=== PATIENT | female | born 1945 | race Caucasian/White ===

== ENCOUNTER 2016-12-15 21:10 | Emergency (ER) | payer MEDICARE ==
[~2016-12-15] VITALS: Ht 160 cm; Wt 70.5 kg
[~2016-12-15 21:10] MED LIST: APIX5TAB PO; BIOT10002 PO; CALC600T12 PO; CARV25TA2 PO; CHOL200047 PO; LOSA25TA2 PO; MAGN400T4 PO; MULT-1018 PO; OMEG1CAP99 PO; SIMV20TA4 PO; TOLT4CAP13 PO; VIT1CAPS8 PO
[2016-12-15 21:15] VITALS: BP 158/70; PULSE 65; RESP 16; O2SAT 98
--- NOTE | 2016-12-15 22:22 | ED.REPORT ---
HPI- Female Date of Service Dec 15, 2016 ED Provider: Tong Camacho MD This is a 71 year old female with history of idiopathic cardiomyopathy, a-fib anticoagulated on warfarin, and HTN presenting to the emergency department due to burning urination that began yesterday evening. Pt reports seeing sediment while urinating today. Denies abdominal pain, fever, chills, back pain, dysuria , urinary frequency, urgency, decreased PO intake, or pelvic pain. She recently treated for UTI, completed antibiotics 5 days ago, though she was asymptotic at this time. Nursing Notes Stated Complaint: BURNING WHILE URINATING Chief Complaint: Female Abdominal Pain Nursing Notes Reviewed: Yes ([employer], meds not reconciled - anticoagulated on warfarin (Eliquis DC'd)) Allergies: Coded Allergies: Sulfa (Sulfonamide Antibiotics) (Verified Allergy, Unknown, 12/15/16) Scheduled Apixaban (Eliquis) 5 Mg Tablet 5 MG PO B ID Biotin (Biotin) 10,000 Mcg Tab.rapdis 5,000 MCG PO DAILY Calcium Carbonate (Calcium) 600 Mg Tablet 600 MG PO DAILY Carvedilol (Carvedilol) 25 Mg Tablet 25 MG PO BID Cholecalciferol (Vitamin D3) (Vitamin D3) 2,000 Unit Capsule 2,000 UNIT PO DAILY Losartan Potassium (Cozaar) 25 Mg Tablet 25 MG PO DAILY Magnesium Oxide (Magnesium Oxide) 400 Mg Tablet 400 MG PO DAILY Multivitamin (Multi Vitamin Daily) 1 Each Tablet 1 EACH PO DAILY [place]-3 Fatty Acids/Fish Oil (Fish Oil 1,200 mg Softgel) 1 Each Capsule 1 EACH PO DIALY Simvastatin (Simvastatin) 20 Mg Tablet 40 MG PO HS Tolterodine Tartrate ER (Tolterodine Tartrate ER) 4 Mg Capsule 4 MG PO DAILY Vit C/Vit E/Lutein/Min/[place]-3 (Ocuvite Softgel) 1 Each Capsule 1 EACH PO DAILY General Time Seen by MD: 22:12 Chief Complaint Other Hx Obtained From: Patient Arrived By: Walk-in Sudden in Onset?: Yes Onset Occurred: Yesterday Symptom Duration: Since onset Severity: Current: Mild Pertinent Negative: Pt denies other symptoms Recent Healthcare: No recent hospitalization, Recent doctor visit Similar Sx Previous: No Past Medical History 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 Smoking History Never Smoker Social History Alcohol Use: Denies alcohol use Drug Use: Denies drug use Other Social History: Good social support, Ambulatory Status Independent Review of Systems Constitutional: Denies: Chills, Fever GI: Denies: Abdominal pain, Nausea, Vomiting Female: Reports: Dysuria, Denies: Flank pain, Hematuria, Pelvic pain, Urinary frequency, Urinary urgency Musculoskeletal: Denies: Back pain Neurologic: Denies: Headache Complete sys rev & neg: except as marked. Physical Exam Initial Vital Signs Vital Signs (First) Date Time Temp Pulse Resp B/P Pulse Ox O2 Delivery O2 Flow Rate FiO2 12/15/16 21:15 36.6 65 16 158/70 98 12/15/16 23:38 Room Air Initial VS: Reviewed, Vital signs normal General/Constitutional: Well-developed, Well-nourished Head / Eyes: Atraumatic, Normocephalic, PERRL ENT: Mucous membranes moist, Conjunctiva normal, No scleral icterus Neck: Supple, Non-tender, Full range of motion Respiratory: Breath sounds normal, Clear to auscultation, No respiratory distress Cardiovascular: Regular rate & rhythm, Heart sounds normal, Intact distal pulses Extremities: Vascular intact, Neuro intact, No swelling, No tenderness Skin: Warm, Dry, No cyanosis Neurologic: Alert, Oriented, Nonfocal Psychiatric: Mood/affect normal, Behavior normal, Normal thought content Female Genitourinary: Exam deferred Abdomen: Soft, Non-tender, No guarding, No rebound Interpretation & Diagnostics Lab Results Interpretation Test 12/15/16 22:35 Urine Color Straw (YELLOW) Urine Appearance Hazy (CLEAR,HAZY) Urine pH 6.0 (5.0-8.0) Urine Specific [place] 1.020 (1.003-1.035) Urine Protein Negativemg/dL (NEG,TRACE) Urine Glucose (UA) Negativemg/dL (NEGATIVE) Urine Ketones Negativemg/dL (NEGATIVE) Urine Occult Blood Trace (NEGATIVE) Urine Nitrite Positive (NEGATIVE) Urine Bilirubin Negative (NEGATIVE) Urine Urobilinogen Normalmg/dL (NORMAL) Urine Leukocyte Esterase Small (NEGATIVE) Urine RBC 3-10/hpf (0-2) Urine WBC 11-50/hpf (0-5) Urine Epithelial Cells Occasional/hpf (NONE-MOD) Urine Crystals None seen (NONE SEEN) Urine Bacteria Many/hpf (NONE-FEW) Urine Hyaline Casts None/lpf (NONE) Urine Granular Casts None seen (NONE SEEN) Urine Waxy Casts None seen (NONE SEEN) Urine Red Blood Cell Casts None seen (NONE SEEN) Urine White Blood Cell Casts None seen (NONE SEEN) Urine Mucus None seen (None Seen) Urine Trichomonas None seen (NONE SEEN) Urine Yeast None (NONE SEEN) Urine Culture Reflexed Indicated Re-Eval/Medical Decision Med Decision/Clinical Course This is a 71-year-old female on warfarin anticoagulation was recently treated with a asymptomatic UTI with Augmentin that she quickly last Thursday-now presents complaining of dysuria that started today. She has had no fever, nausea, vomiting, or back pain. She Had no other infections, and has no additional complaints. On exam she clinically appears well and has normal vitals. Her urine is markedly positive for findings of UTI, arguing for possible resistant etiology. Urine culture is pending Consult with pharmacy for their recommendation antibiotics given the patient's just failed Augmentin, has a sulfa allergy, wishes to avoid fluoroquinolones that she has a tendinopathy already and does not want to accept the risk of fluoroquinolone/Coumadin interaction with warfarin-and pharmacy indicates that the local resistance pattern Escherichia coli and Augmentin is approaching 70%. They have recommended Cephalosporins-so the patient received a dose of ceftriaxone, and cephalexin to take at home. She already has urology follow-up scheduled later this week. Routine precautions reviewed. She was offered phenazopyridine but declined. She has had recent INR testing so it was not repeated. Pharmacy indicates the antibiotics are safe to combine. She is discharged in good condition. Source of Hx: Old records Differential Diagnosis: Positive: Urinary tract infection, Negative: Bartholin's abscess, Cellulitis, Ectopic preg, ruptured, Ectopic , Pyelonephritis, acute, Tubo-ovarian abscess Counseled Regarding: Diagnosis, Lab results, Need for follow-up, When/why to return to ED Discharge & Departure Impression: Primary Impression: Urinary tract infection Urinary tract infection type: acute cystitis Hematuria presence: without hematuria Qualified Code: N30.00 - Acute cystitis without hematuria Disposition: Home Discharge Condition All VS Reviewed: Yes Condition: Stable Additional Instructions: 1. Urine test does reveal findings of urinary tract infection. 2. You received an injection of the antibiotics ceftriaxone. 3. The antibiotic cephalexin 500 mg 3 times a day for 7 days. 4. A "urine culture" has been sent today-this will take 2-3 days for results typically. Call [phone] for results. 5. Pharmacist indicates this antibiotic is safe to take with your Coumadin and should not interact. 6. Symptoms are expected to be improve rapidly over the next few days. Return if you develop new or worsening symptoms-fever, back pain, nausea vomiting, etc. 7. Keep the follow-up appointment with your urologist in [place] as scheduled later this week Referrals: Payton Ignacio MD (PCP) [place] Attestation Portions of this note were transcribed by Luisa Harvey. I, Dr. Camacho personally performed the history, physical exam and medical decision-making; I reviewed and confirmed the accuracy of the information in the transcribed note. Signed by: roseanne An. 12/15/2016, 23:30. Tong Camacho MD Dec 15, 2016 22:22 LUISA HARVEY Dec 15, 2016 22:28
[2016-12-15 22:59] LABS: APPEARANCE,URINE HAZY (CLEAR,HAZY); COLOR,URINE STRAW (YELLOW); OCCULT BLOOD,URINE TRACE (NEGATIVE); UROBILINOGEN,URINE NORMAL (NORMAL)
[2016-12-15] MEDS ORDERED: cefTRIAXone Inj 1,000 MG, Lidocaine PF 1% Inj 2.1 ML in Syringe 0 EACH IM ONE (23:05)
[2016-12-15 23:38] VITALS: BP 153/64; PULSE 60; O2SAT 95
[2016-12-16] MEDS ORDERED: _Cephalexin 500 mg Capsule PO SCH (08:30)
[2017-01-12] MEDS ORDERED: OXYB15TA PO (16:27)
[2017-01-12] MEDS ORDERED: FISH1CAP15 PO (16:27)
[2017-01-12] MEDS ORDERED: HYDR-4003 PO (16:27)
[2017-01-12] MEDS ORDERED: FLEC100T2 PO (16:27)
[2017-01-12] MEDS ORDERED: CHOL500011 PO (16:27)
[2017-01-12] MEDS ORDERED: ATOR80TA PO (16:27)
[2017-01-12] MEDS ORDERED: MULT-1018 PO (16:27)
[2017-01-12] MEDS ORDERED: VALA1000 PO (16:27)
[2017-01-12] MEDS ORDERED: LOSA25TA2 PO (16:27)
[2017-01-12] MEDS ORDERED: ACET325T51 PO (16:27)
[2017-01-12] MEDS ORDERED: CALC-696 PO (16:27)
[2017-01-12] MEDS ORDERED: ISOS30TA4 PO (16:27)
[2017-01-12] MEDS ORDERED: VIT1CAPS8 PO (16:27)
[2017-01-12] MEDS ORDERED: OMEP20TA86 PO (16:27)
[2017-01-12] MEDS ORDERED: MAGN400T4 PO (16:27)
[2017-01-12] MEDS ORDERED: CARV25TA PO (16:27)
[2017-01-12] MEDS ORDERED: WARF2TAB7 PO ×2 (16:27)
== END 2016-12-15 23:40 | disposition home or self-care (01) ==
LOC: SED 21:10
DX: N30.00 Acute cystitis without hematuria (principal); B96.20 Unspecified Escherichia coli [E. coli] as the cause of diseases classified elsewhere; I25.2 Old myocardial infarction; I11.9 Hypertensive heart disease without heart failure; I48.91 Unspecified atrial fibrillation; Z79.01 Long term (current) use of anticoagulants; Z88.2 Allergy status to sulfonamides
CPT/HCPCS: 81000; 87086; 87088; 87186; 96372; 99284; J0696

== ENCOUNTER 2017-01-15 10:18 | Day surgery (SDC) | payer MEDICARE ==
[2017-01-15] VITALS (10 sets, daily range): BP systolic 118–168; BP diastolic 65–74; PULSE 50–68; RESP 11–16; O2SAT 90–98
[~2017-01-15] VITALS: Ht 152.4 cm; Wt 73.0 kg
--- NOTE | 2017-01-15 09:58 | PCM.HPANE ---
Patient Data Surgeon Admitting Provider: Attending Provider:Richie Carroll DO Primary Care Physician:Linda Wu Other Provider:Rei Hernandez Anesthesia Reason for Visit Right Shoulder Rotator Cuff Tear, Oa Ht/WT & BMI Height (Feet): 5 Height (Inches): 0 Weight (Kilograms): 75.3 Body Mass Index 32.00 Allergies Coded Allergies: Sulfa (Sulfonamide Antibiotics) (Verified Allergy, Unknown, 12/15/16) Past Anesthesia History Anesthesia History: Denies:: Abnormal Airway, Anesthesia Reactions, Difficult Intubation, Fam Anesthesia Reaction Diabetes History Hx Diabetes?: No MRSA MRSA: No Medications Blood Thinner: Aspirin and Coumadin Hypertension Medication: Yes Home Meds Incl Beta Renuka: Yes Date Beta Renuka Taken: January 14, 2017 Time Beta Renuka Taken: 07:00 Previous Beta Renuka Dose >24: Dose Not Given, Contraindicated Beta Renuka Contraindicated: Pulse <70 bpm Reported Medications Warfarin Sodium 2 Mg Tablet4 Mg PO 4xweekly 30 Days Ref 0 01/12/17 Warfarin Sodium 2 Mg Tablet6 Mg PO Thu, Thu, Thu 30 Days Ref 0 01/12/17 Cholecalciferol (Vitamin D3) (Vitamin D3)5,000 Unit Tablet5,000 Unit PO DAILY 01/12/17 Valacyclovir HCl (Valtrex)1,000 Mg Tablet1,000 Mg PO Q12H PRN outbreak 30 Days 01/12/17 Oxybutynin Chloride ER 15 Mg Tab.er.2415 Mg PO DAILY Ref 0 01/12/17 Omeprazole 20 Mg Tablet.dr20 Mg PO DAILY 01/12/17 Vit C/Vit E/Lutein/Min/[place]-3 (Ocuvite Softgel)1 Each Capsule1 Each PO DAILY 01/12/17 Hydrocodone-Acetaminophen 5-325 mg 1 Each Tablet1 Tablet PO Q8H PRN For Pain Ref 0 01/12/17 Multivitamin (Multi Vitamin Daily)1 Each Tablet1 Each PO DAILY 30 Days Ref 0 01/12/17 Magnesium Oxide 400 Mg Qnfktj653 Mg PO DAILY 01/12/17 Atorvastatin (Lipitor)80 Mg Npvmni13 Mg PO DAILY Ref 0 01/12/17 Isosorbide MN ER 30 Mg Tab.er.24h30 Mg PO DAILY 01/12/17 Flecainide Acetate 100 Mg Wtmuoa947 Mg PO PRN heart palpitations take in ER only- do NOT take at home 01/12/17 Fish Oil/Dha/Epa (Fish Oil 1,200 mg Fish Oil)1 Each Capsule1 Each PO DAILY 01/12/17 Losartan Potassium (Cozaar)25 Mg Mdgxdj88 Mg PO DAILY 01/12/17 Carvedilol (Coreg)25 Mg Quitkq01 Mg PO BID Ref 0 01/12/17 Calcium Citrate/Vitamin D2 ([place]-Citrate Plus Vitamin D Tab)1 Each Tablet1 Each PO DAILY 01/12/17 Acetaminophen 325 Mg Kfcghg998 Mg PO Q4H PRN For Pain Ref 0 01/12/17 Discontinued Reported Medications Apixaban (Eliquis)5 Mg Tablet5 Mg PO B ID 10/28/15 Biotin 10,000 Mcg Tab.rapdis5,000 Mcg PO DAILY 10/28/15 Losartan Potassium (Cozaar)25 Mg Yvnxed09 Mg PO DAILY 10/28/15 [place]-3 Fatty Acids/Fish Oil (Fish Oil 1,200 mg Softgel)1 Each Capsule1 Each PO DIALY 10/28/15 Tolterodine Tartrate ER 4 Mg Capsule4 Mg PO DAILY 10/28/15 Magnesium Oxide 400 Mg Rtimfa028 Mg PO DAILY 10/28/15 Simvastatin 20 Mg Mtfepz75 Mg PO HS Ref 0 07/30/15 Carvedilol 25 Mg Liqrim83 Mg PO BID Ref 0 07/30/15 Cholecalciferol (Vitamin D3) (Vitamin D3)2,000 Unit Capsule2,000 Unit PO DAILY 07/30/15 Multivitamin (Multi Vitamin Daily)1 Each Tablet1 Each PO DAILY 30 Days Ref 0 07/30/15 Calcium Carbonate (Calcium)600 Mg Yytdju990 Mg PO DAILY 07/30/15 Vit C/Vit E/Lutein/Min/[place]-3 (Ocuvite Softgel)1 Each Capsule1 Each PO DAILY 07/30/15 History History of ENT Problems?: No HEENT History: Denies:: Abnormal Airway Cataracts Difficult Intubation Dysphagia Glaucoma Hearing Problem Sinus Problem TMJ Denture Type: None Teeth Condition: Within Normal Limits Hx of Heart Problems?: Yes Cardiovascular History: Positive for:: Atrial Fibrillation (PAF) Hypertension Denies:: Cardiac Surgery Congestive Heart Failure Edema Heart Murmur Irregular Heartbeat (paf) Pacemaker Thrombophlebitis Valvular Heart Disease (MPS- 2015- ef 68%) Hx of Respiratory Problem?: No Respiratory History: Denies:: Asthma COPD Emphysema Oxygen Administration Pneumonia Tuberculosis Use of C-PAP Machine Use of Inhalers / NEBS Hx Neurologic Problems?: No Neurological History: Denies:: CVA Dementia Dizziness Headaches Multiple Sclerosis Parkinson's Disease Seizures Hx of GI Problems?: Yes Hx of Problems?: Yes Genitourinary History: Positive for:: Kidney Stones (hx of, passed spontaneously) Urinary Tract Infection (hx of 12/2016) Female Hx: Positive for:: Problems with Breasts? (lymph node removed 2004) Denies:: Currently Endometriosis Pelvic Inflammatory Skin History: Denies:: History Skin Disorders? Pressure Ulcers Hx Musculoskeletal Problems?: Yes Musculoskeletal History: Positive for:: Degenerative Joint Joint Replacement (R knee replacement 2003) Osteoarthritis Denies:: Fibromyalgia Musculoskeletal Trauma (right shoulder current admission problem) Systemic Lupus Hx of Psycho/Social Problems?: No Psycho Social History: Denies:: Anxiety Hx Depression Hx Surgeries?: Yes (right partial knee, tonsil) Hx Any Other Health Problems?: Yes Other History: Denies:: Cancer Hospitalization Thyroid Disease History Blood Transfusions: Denies:: Blood Transfusions Hx Diabetes: No Hx Alcohol Use: NoHx Substance Use: No Smoking Status: Never Smoker Have You Smoked inLast 12 mo: No Stop/Bang S-Snoring: Do You Snore Loudly: No T-Tired: feel tired, fatigued: No O-Obsered: Observed not breath: No P-Blood Pressure: treated: Yes B- Body Mass Index > 35 kg/m2: No A- Age over 50: Yes N- Neck Large Circumference: No G- Gender Male: No TIAN Total Score: 2 TIAN Risk Assessment: Low Risk, <3 Yes Risk Assessment Category Category 1A: Patient has history of documented sleep apnea, and HAS NOT received any narcotic, sedative or anesthesia administration during this stay. Category 1B: Patient has history of documented sleep apnea, and HAS received any narcotic , sedative or anesthesia administration during this stay Category 2: Patient has SUSPECTED Obstructive Sleep Apnea, and HAS received any narcotic , sedative or anesthesia administration during this stay. Category 3: Patient has SUSPECTED Obstructive Sleep Apnea and HAS NOT received narcotic, sedative or anesthesia administration during this stay. Category 4: Outpatient in Procedural Areas with known sleep apnea or who screen positive for High Risk via the STOP/BANG questionnaire. Exam Exam General Appearance: Alert, Oriented X3, Cooperative, No Acute Distress HEENT/AIRWAY: MP 2, Neck Movement (FROM), Mouth Opening (3FB) Lungs: Normal Air Movement Heart: Exam Unremarkable Plan Impression Patient chart reviewed, patient interviewed and anesthestic plan with risks, benefits, and alternatives discussed, and informed consent obtained. ASA Physical Status: ASA2 Mod Systemic Disease Anesthetic Plan: GA, Regional Block (intrascalene), Ultra Sound (for block) Bene/Risks/Altern/Consents: Yes HP Complete Prior to Induction: Yes Cristi Nichols MD January 15, 2017 09:58
[~2017-01-15 10:18] MED LIST changes: +ACET325T51 PO; -APIX5TAB PO; +ATOR80TA PO; -BIOT10002 PO; +CALC-696 PO; -CALC600T12 PO; +CARV25TA PO; -CARV25TA2 PO; -CHOL200047 PO; +CHOL500011 PO; +CeFAZolin Inj 2 GM in IV Premix 1 EACH IV ONE; +FISH1CAP15 PO; +FLEC100T2 PO; +HYDR-4003 PO; +ISOS30TA4 PO; +Lactated Ringer's 1,000 ML IV SCH; -OMEG1CAP99 PO; +OMEP20TA86 PO; +OXYB15TA PO; -SIMV20TA4 PO; -TOLT4CAP13 PO; +VALA1000 PO; +WARF2TAB7 PO
[2017-01-15] MEDS ORDERED: Dexamethasone 4 mg/mL Inj ONE (10:19)
[2017-01-15] MEDS ORDERED: Ondansetron 2 mg/mL 2 mL Inj ONE (10:19)
[2017-01-15] MEDS ORDERED: Propofol 10,000 mCg/mL 20 mL Inj ONE (10:19)
[2017-01-15] MEDS ORDERED: EPHEDrine/NS 5 mg/mL 5 mL Syringe ONE (10:19)
[2017-01-15] MEDS ORDERED: Bupivacaine-MPF 0.25% 30 mL Inj ONE (10:19)
[2017-01-15] MEDS ORDERED: fentaNYL-PF 50 mCg/mL 2 mL Inj ONE (10:19)
[2017-01-15] MEDS ORDERED: Lactated Ringer's 1,000 ML IV ONE (10:54)
[2017-01-15] MEDS ORDERED: CeFAZolin Inj 2 gm / 50mL D5W IV ONE (11:13)
[2017-01-15] MEDS ORDERED: oxyCODONE-Acetamin 5-325 mg Tablet PO PRN (13:05)
[2017-01-15] MEDS ORDERED: Lactated Ringer's 500 ML IV PRN (13:58)
[2017-01-15] MEDS ORDERED: Lactated Ringer's 1,000 ML IV SCH (13:58)
[2017-01-15] MEDS ORDERED: EPHEDrine Sulfate 50 mg/mL Inj IVPUSH PRN (14:00)
[2017-01-15] MEDS ORDERED: Ondansetron 2 mg/mL 2 mL Inj IVPUSH PRN (14:00)
[2017-01-15] MEDS ORDERED: Dexamethasone 4 mg/mL Inj IVPUSH PRN (14:00)
[2017-01-15] MEDS ORDERED: Phenylephrine 10,000 mCg/mL Inj IVPUSH PRN (14:00)
[2017-01-15] MEDS ORDERED: fentaNYL-PF 50 mCg/mL 2 mL Inj IVPUSH PRN (14:00)
[2017-01-15] MEDS ORDERED: HYDROmorphone 1 mg/mL Inj IVPUSH PRN (14:00)
[2017-01-15] MEDS ORDERED: MetoCLOpramide 5 mg/mL 2 mL Inj IVPUSH PRN (14:00)
--- NOTE | 2017-01-15 15:50 | PCM.ANEP1 ---
Post Anesthesia Phase 1 PACU Phase 1 Assessment Vital Signs see anesthesia report Vital Signs Date Time Temp Pulse Resp B/P Pulse Ox O2 Delivery O2 Flow Rate FiO2 01/15/17 10:49 36.6 52 14 156/73 97 Room Air Anesthetic Administered: GA Level of Alertness: Awake, talking BLEDSOE's with Equal Strength: No (block on Right) Pain: No Nausea or Vomiting: No Oxygen Delivery: Nasal Cannula Lungs: Normal Air Movement Dermatome Level: Full Sensation Complications: No Follow up Care: No Cristi Nichols MD January 15, 2017 15:50
--- NOTE | 2017-01-15 23:33 | OP ---
[address] [address] OPERATIVE REPORT PATIENT: DESIRAE ONOFRE : 1945 MR#: [id number] ADMIT: 01/15/2017 JOB ID: [id number] DATE OF SURGERY: 01/15/2017 PREOPERATIVE DIAGNOSIS(ES): 1. Right shoulder rotator cuff tear. 2. Right shoulder impingement syndrome. 3. Right shoulder acromioclavicular arthritis. 4. Right shoulder degenerative labrum. POSTOPERATIVE DIAGNOSIS(ES): 1. Right shoulder rotator cuff tear. 2. Right shoulder impingement syndrome. 3. Right shoulder acromioclavicular arthritis. 4. Right shoulder degenerative labrum. PROCEDURES PERFORMED: 1. Right shoulder arthroscopy and rotator cuff repair. 2. Right shoulder arthroscopy with arthroscopic biceps tenodesis. 3. Right shoulder arthroscopy subacromial decompression and acromioplasty. 4. Right shoulder arthroscopy with distal clavicle excision. 5. Right shoulder arthroscopy with debridement of labrum. SURGEON: Richie Carroll D.O. CHIP MUCKER: Diallo Dill PA-C. The assistance of Diallo Dill PA-C was necessary for help with manipulation of the intra-articular equipment, including the camera, which was essential for the multiple repairs that were performed. ANESTHESIA: General. HISTORY: The patient is a pleasant 71-year-old female with a longstanding history of right shoulder pain. She did well initially with conservative treatment with therapy as well as an injection, but had progression of symptoms with a simple small injury at home. The patient had an MRI obtained which demonstrated a rotator cuff tear with also acromioclavicular arthritis, mild glenohumeral arthritis and a degenerative labral tear. She also demonstrated signs of impingement. I discussed with the patient the risks, benefits, and indications to proceed with a right shoulder arthroscopy with rotator cuff repair, subacromial decompression, distal clavicle excision and possible open biceps tenodesis. She understood the risks include, but are not limited to, neurovascular injury, tendon injury, infection, failure of fixation, stiffness, persistent pain which may require further intervention. Patient had all questions answered. Consent was signed and placed in the chart. PROCEDURE IN DETAIL: The patient was brought to the operative suite and placed supine on the operating table. Surgical time-out was performed. Everyone in the room was in agreement. After appropriate anesthesia was obtained, the patient was placed into the beach chair position with all prominences well padded. The right upper extremity was then prepped and draped in sterile fashion. The right arm was then placed in the arthroscopic arm solis. A standard posterior viewing portal was then developed in typical fashion and the camera introduced in the glenohumeral joint. On gross observation, the glenoid as well as the humeral head had some grade 2 chondromalacia. There was significant circumferential degenerative labral tearing most prominent to the posterior superior and anterior superior quadrant. The biceps did demonstrate some mild tendinopathy. Anterior working portal was developed in typical fashion. A shaver was introduced to perform a debridement of the labrum due to the amount of labral degenerative tearing which included the superior aspect of the labrum easily being elevated off of the glenoid. The biceps was tenotomized at this point for later tenodesis. The undersurface of the rotator cuff demonstrated a supraspinatus tear. The camera was then brought into the subacromial space. On gross observation of the significant hypertrophic bursa, lateral working portal was then created. An extensive bursectomy then performed. The supraspinatus tear was well identified. The tuberosity footprint was then debrided for preparation for rotator cuff repair. Attention was then turned towards identification of the biceps within the bicipital groove. Electrocautery was used to free up the biceps from the bicipital groove. The biceps was then subluxed out of the groove and a guidewire was then advanced supra pectoral early within the bicipital groove for planned placement of the biceps tenodesis as followed by overreaming to a size 8. Next, am Arthrex 4 tip SwiveLock was advanced over the biceps tendon and shuttled into the prepared hole. This was followed by an interference screw. Excellent tenodesis was achieved. The remaining free end of the biceps was then cut and removed. Attention was turned back towards the rotator cuff repair. Two corkscrew anchors were utilized, the 1st a 4.5 mm corkscrew anchor that did identify that the patient had significant soft bone but still was well seated within the greater tuberosity footprint. The 2nd corkscrew anchor was chosen to be a 5.5 mm anchor. The eight limbs of the sutures were then shuttled through the rotator cuff and tied for an excellent single row repair. Attention was then turned towards the undersurface of the acromion. A surface electrocautery was used to further delineate the anterior edge of the acromion. It had an inferior hook. A Burinex was used to perform an acromioplasty. Next, the bur introduced into the anterior portal and a distal clavicle excision performed at approximately 8-10 mm in width. The arthroscopic equipment was then removed from the joint, the portals closed with 4-0 nylon in simple interrupted fashion. The patient was placed in a bulky soft dressing and into a shoulder immobilizer. ESTIMATED BLOOD LOSS: 25 cc. COMPLICATIONS: None. DISPOSITION: The patient tolerated the procedure well. Anesthesia was reversed and the patient was transferred back to recovery. POSTOPERATIVE PLAN: The patient will follow up in my office in two weeks. We will remove the patient's sutures at that time. We will hold off on any shoulder range of motion until six weeks postop due to the size of the tear. She is to limit for the first two weeks terminal extension of the elbow 30 degree short of full extension due to the biceps tenodesis.
== END 2017-01-15 23:59 | disposition home or self-care (01) ==
LOC: SAS 10:18
PROVIDERS: ATTEND Orthopaedic Surgery
DX: M75.121 Complete rotator cuff tear or rupture of right shoulder, not specified as traumatic (principal); M75.41 Impingement syndrome of right shoulder; M19.011 Primary osteoarthritis, right shoulder; M24.111 Other articular cartilage disorders, right shoulder; M94.211 Chondromalacia, right shoulder; I10 Essential (primary) hypertension; I25.10 Atherosclerotic heart disease of native coronary artery without angina pectoris; E78.5 Hyperlipidemia, unspecified; I48.0 Paroxysmal atrial fibrillation; K75.81 Nonalcoholic steatohepatitis (NASH); M19.90 Unspecified osteoarthritis, unspecified site; K21.9 Gastro-esophageal reflux disease without esophagitis; Z87.442 Personal history of urinary calculi; Z79.01 Long term (current) use of anticoagulants; Z79.82 Long term (current) use of aspirin; Z96.651 Presence of right artificial knee joint
CPT/HCPCS: 29824; 29826; 29827; 29828; 76942; C1713; J0171; J0690; J1100; J1885; J2250; J2405; J3010; J7120